=== PATIENT | female | born 1995 | race Hispanic/Latino ===

== ENCOUNTER 2024-07-09 19:00 | Inpatient (IN) | payer MEDICAID, SELFPAY ==
[2024-07-09] MEDS ORDERED: Lidocaine 1% (PF) 30 ML VIAL SC PRN (21:48)
[2024-07-09] MEDS ORDERED: Promethazine HCl 25 MG/ML VIAL IM PRN (21:48)
[2024-07-09] MEDS ORDERED: Ondansetron PF 4 MG/2 ML Vial IVP PRN (21:48)
[2024-07-09] MEDS ORDERED: hydrALAZINE 20 MG/ML VIAL SLOW IVP PRN (21:48)
[2024-07-09] MEDS ORDERED: Misoprostol 200 MCG TAB PR PRN (21:49)
[2024-07-09] MEDS ORDERED: Tranexamic Acid 1,000 MG/10 ML VIAL IVP PRN (21:49)
[2024-07-09] MEDS ORDERED: Methylergonovine 0.2 MG/ML VIAL IM PRN (21:49)
[2024-07-09] MEDS ORDERED: Carboprost 250 MCG/ML AMP IM PRN (21:49)
[2024-07-09] MEDS ORDERED: Acetaminophen 500 MG TAB PO PRN (21:49)
[2024-07-09] MEDS ORDERED: Ibuprofen 800 MG TAB PO PRN (21:49)
[2024-07-09] MEDS ORDERED: Diphenoxylate HCl/Atropine Tablet PO PRN (21:49)
[2024-07-09 22:48] LABS: Hematocrit 34.3 % (34.9-44.5); Mean Corpuscular Hemoglobin 30.9 pg (27.0-33.0); Mean Corpuscular Volume 88.4 fL (81.6-98.3); Mean Platelet Volume 10.7 fL (7.4-10.4); Platelet Count 230 10x3/uL (150-450); RBC Distribution Width 13.2 % (11.5-14.5); Red Blood Cell (RBC) Count 3.88 10x6/uL (3.90-5.03); White Blood Cell (WBC) Count 8.73 10x3/uL (3.5-10.5)
[2024-07-09 23:25] LABS: HBsAg Index 0.23 S/CO (0-0.99); Hep B Surf Ag - L&D Non-Reactive S/CO (NonReactive); Syphilis Antibody Nonreactive (Nonreactive); Syphilis Antibody Index 0.05 S/CO (<1.00 Non-Reactive)
[2024-07-09 23:44] VITALS: BMI 31.1
[2024-07-09] MEDS ORDERED: Lactated Ringer's 1,000 ML IV SCH (23:59)
[2024-07-09] MEDS ORDERED: Oxytocin 30 units/NS 500 ML 500 ML IV SCH ×3 (23:59)
[2024-07-10] MEDS: Misoprostol 100 MCG TAB VAG SCH (02:38)
[2024-07-10] MEDS ORDERED: Ondansetron PF 4 MG/2 ML Vial IVP PRN ×3 (16:09→19:14)
[2024-07-10] MEDS ORDERED: Naloxone HCl 0.4 mg/ml Vial IVP PRN ×4 (16:09→19:14)
[2024-07-10] MEDS ORDERED: Promethazine HCl 25 MG/ML VIAL IM PRN ×2 (16:09→19:14)
[2024-07-10] MEDS ORDERED: ePHEDrine Sulfate 50 MG/10 ML VIAL SLOW IVP PRN (16:09)
[2024-07-10] MEDS ORDERED: diphenhydrAMINE 50 MG/ML VIAL IVP PRN ×2 (16:09→19:14)
[2024-07-10] MEDS ORDERED: Lactated Ringer's 500 ML IV PRN (16:09)
[2024-07-10] MEDS ORDERED: Moisturizing Cream (Eucerin) 113 GM JAR TOP PRN ×2 (16:09→19:14)
[2024-07-10] MEDS ORDERED: fentaNYL 2 mcg/Ropivacaine 0.2% Epidural 100 ML CADD EPIDURAL SCH (16:15)
[2024-07-10] MEDS ORDERED: Communication Order-Pharmacy FS SCH ×2 (16:15→19:15)
[2024-07-10] MEDS ORDERED: Bicitra 30 ML UDCUP PO PRN (17:57)
[2024-07-10] MEDS ORDERED: Famotidine/PF 20 mg/2ml Vial SLOW IVP PRN (17:57)
[2024-07-10] MEDS ORDERED: CEFAZOLIN 2 GM in Sodium Chloride 0.9% 100 ML IVPB SCH (18:00)
[2024-07-10] MEDS ORDERED: Azithromycin 500 MG in Sodium Chloride 0.9% 250 ML 250 ML IVPB SCH (18:00)
[2024-07-10] MEDS ORDERED: Boudreaux's Butt Paste 60 GM TUBE TOP PRN (18:40)
[2024-07-10] MEDS ORDERED: Dextrose 30 ML TUBE PO PRN (18:40)
[2024-07-10 18:43] LABS: Analyzer IN Cardio CS NICU; RapidComm Collect By RN
[2024-07-10 18:44] LABS: Analyzer IN Cardio CS NICU; Critical Notified Whom: RN; RapidComm Collect By RN; pH (Cord, venous) 7.352 (7.250-7.350)
[2024-07-10] MEDS ORDERED: Erythromycin Base 0.5% Oint 1 GM TUBE EA EYE SCH (18:45)
[2024-07-10] MEDS ORDERED: Phytonadione Neonatal 1 MG/0.5 ML AMP IM SCH (18:45)
[2024-07-10] MEDS ORDERED: fentaNYL 50 mcg/mL 1 mL Vial SLOW IVP PRN (19:14)
[2024-07-10] MEDS ORDERED: Meperidine HCl/PF 25 MG (1 mL) VIAL SLOW IVP PRN (19:14)
[2024-07-10] MEDS ORDERED: Naloxone HCl 0.4 mg/ml Vial IV PRN (19:14)
[2024-07-11] MEDS: Ketorolac Tromethamine 30 MG (1 mL) VIAL IVP SCH ×2 (03:00→20:09)
[2024-07-11] MEDS: Hepatitis B Vaccine 10 MCG/0.5 ML SYR ONE (07:42)
[2024-07-11] MEDS: CEFAZOLIN 2 GM VIAL ONE (07:42)
[2024-07-11] MEDS: Erythromycin Base 0.5% Oint 1 GM TUBE ONE (07:42)
[2024-07-11] MEDS: fentaNYL/Ropivacaine Epidural 100 ML ONE (07:42)
[2024-07-11] MEDS: Azithromycin 500 MG VIAL ONE (07:42)
[2024-07-11] MEDS: PHENYLEPHRINE-NS 100 MCG/ML 10 ML SYRINGE ONE (07:43)
[2024-07-11] MEDS: Ketorolac Tromethamine 30 MG (1 mL) VIAL ONE (07:43)
[2024-07-11] MEDS: Ondansetron PF 4 MG/2 ML Vial ONE (07:43)
[2024-07-11] MEDS: Oxytocin 10 UNITS/ML VIAL ONE (07:43)
[2024-07-11] MEDS: Phytonadione Neonatal 1 MG/0.5 ML AMP ONE (07:43)
[2024-07-11] MEDS: Dexamethasone 10 MG/ML VIAL ONE (07:43)
[2024-07-11] MEDS: Carboprost 250 MCG/ML AMP ONE (07:44)
[2024-07-11] MEDS: Morphine PF 10 MG/10 ML VIAL ONE (07:44)
[2024-07-11] MEDS: Bupivacaine PF 0.5% 30 ML VIAL ONE (07:44)
[2024-07-11] MEDS: Methylergonovine 0.2 MG/ML VIAL ONE (07:44)
[2024-07-11] MEDS ORDERED: Docusate 100 MG CAP PO PRN (08:34)
[2024-07-11] MEDS ORDERED: Bupivacaine/Epinephrine 0.25% 30 ML VIAL ONE (16:00)
[2024-07-11] MEDS ORDERED: Lidocaine 2% MPF 10 ML AMP (For Epidural Use) ONE (16:00)
[2024-07-11] MEDS: Misoprostol 100 MCG TAB ONE (20:10)
[2024-07-12] MEDS: Acetaminophen 325 MG TAB PO PRN (00:46)
[2024-07-12 07:55] VITALS: BP 102/56; TEMP 98.4
[2024-07-12] MEDS: HYDROcodone/Acetaminophen 5/325 mg Tablet PO PRN (09:36)
== END 2024-07-12 10:40 | disposition home or self-care (01) | DRG 788 ==
LOC: CSHLD 21:14 → CSHPP 07-10 21:40
PROVIDERS: ADMIT Family Medicine; ATTEND Family Medicine
PROC: 10D00Z1 Extraction of Products of Conception, Low, Open Approach (ICD-10-PCS; principal; 2024-07-10)
DX: O76 Abnormality in fetal heart rate and rhythm complicating labor and delivery (principal); Z3A.39 39 weeks gestation of pregnancy; Z37.0 Single live birth
CPT/HCPCS: 36415; 51702; 82805; 85027; 86780; 86850; 86900; 86901; 87340; J0665; J1100; J1885; J2210; J2274; J2405; J2590; J3490